=== PATIENT | female | born 1990 | race Caucasian/White ===

== ENCOUNTER 2017-04-21 07:40 | Emergency (ER) | payer MEDICAID, OTHER ==
[~2017-04-21] VITALS: Ht 172.7 cm; Wt 75.2 kg
[2017-04-21 08:25] LABS: ASPARTATE AMINO TRANSFERASE 14 U/L (15-37); BLOOD UREA NITROGEN 9 mg/dL (7-18)
[2017-04-21] MEDS ORDERED: SODIUM CHLORIDE 0.9% 1,000ML IVBOLUS ONE (08:30)
[2017-04-21 09:31] VITALS: BP 118/58
[2017-04-21 09:31] LABS: PATH.CAST-FLAG NOT PRESENT; SPERM-FLAG NOT PRESENT; SRC-FLAG NOT PRESENT; XTAL-FLAG NOT PRESENT; YLC-FLAG NOT PRESENT
== END 2017-04-21 10:09 | disposition home or self-care (01) ==
LOC: ED 08:04
DX: O20.0 Threatened abortion (principal); Z3A.14 14 weeks gestation of pregnancy; F15.10 Other stimulant abuse, uncomplicated; F11.10 Opioid abuse, uncomplicated; Z87.891 Personal history of nicotine dependence
CPT/HCPCS: 36415; 76801; 80053; 81001; 84702; 85025; 86901; 87086; 99285

== ENCOUNTER 2017-04-23 16:18 | Emergency (ER) | payer MEDICAID ==
[~2017-04-23] VITALS: Ht 172.7 cm; Wt 72.8 kg
[2017-04-23 16:22] VITALS: BP 143/80
== END 2017-04-23 17:52 | disposition home or self-care (01) ==
LOC: ED 17:41
DX: O20.0 Threatened abortion (principal); Z3A.01 Less than 8 weeks gestation of pregnancy
CPT/HCPCS: 36415; 84702; 99283

== ENCOUNTER 2017-05-27 17:49 | Emergency (ER) | payer MEDICAID ==
[~2017-05-27] VITALS: Ht 172.7 cm; Wt 74.6 kg
[2017-05-27] MEDS ORDERED: PRENATAL (18:11)
[2017-05-27] MEDS ORDERED: ONDANSETRON ODT 4 MG PO ONE (18:30)
[2017-05-27 18:44] LABS: BLOOD UREA NITROGEN 7 mg/dL (7-18)
[2017-05-27] MEDS ORDERED: ONDANSETRON ODT 4 MG ONE (18:50)
[2017-05-27 19:01] VITALS: BP 115/68
== END 2017-05-27 19:46 | disposition home or self-care (01) ==
LOC: ED 18:34
DX: O20.0 Threatened abortion (principal); Z3A.08 8 weeks gestation of pregnancy; D25.9 Leiomyoma of uterus, unspecified; Z87.891 Personal history of nicotine dependence
CPT/HCPCS: 36415; 76801; 80048; 81001; 82040; 84702; 85025; 87086; 99285; Q0162

== ENCOUNTER 2017-06-06 10:44 | Observation (INO) | payer MEDICAID ==
[~2017-06-06] VITALS: Ht 172.7 cm; Wt 73.0 kg
[~2017-06-06 10:44] MED LIST: PRENATAL
[2017-06-06] MEDS ORDERED: MIDAZOLAM 1 MG/ML, 2ML ONE (11:16)
[2017-06-06] MEDS ORDERED: FENTANYL PF 250 MCG/5ML ONE (11:16)
[2017-06-06] MEDS ORDERED: DOXYCYCLINE 100 MG in DEXTROSE 5% 250 ML IV ONE (11:30)
[2017-06-06] MEDS ORDERED: PLEASE ENTER HEIGHT AND WEIGHT MC SCH (11:30)
[2017-06-06] MEDS ORDERED: ZOLP10TA5 PO (11:34)
[2017-06-06] MEDS ORDERED: [UNRECOGNIZED DRUG - OTHER] (11:34)
[2017-06-06] MEDS ORDERED: NORT25CA PO (11:34)
[2017-06-06] MEDS ORDERED: CLON-365 PO (11:34)
[2017-06-06 11:40] VITALS: BP 118/73
[2017-06-06] MEDS ORDERED: SILVER NITRATE STICK TP ONE ×2 (11:57→12:08)
[2017-06-06] MEDS ORDERED: MISOPROSTOL 200 MCG TABLET ONE ×2 (11:57→12:08)
[2017-06-06] MEDS ORDERED: OXYTOCIN 10 UNITS/ML, 1ML ONE ×2 (11:57→12:08)
[2017-06-06] MEDS ORDERED: EPINEPHRINE 1 MG/ML, 1ML ONE ×2 (11:58→12:08)
[2017-06-06] MEDS ORDERED: METHYLERGONOVINE 0.2 MG/ML IM ONE ×2 (11:58→12:10)
[2017-06-06] MEDS ORDERED: LIDOCAINE/PF 1%, 30ML ONE ×2 (11:58→12:08)
[2017-06-06] MEDS ORDERED: LACTATED RINGERS 1,000 ML IV SCH ×2 (12:01→12:55)
[2017-06-06] MEDS ORDERED: ONDANSETRON 2MG/ML, 2ML ONE (12:30)
[2017-06-06] MEDS ORDERED: PROPOFOL 10 MG/ML, 20ML ONE (12:30)
[2017-06-06] MEDS ORDERED: KETOROLAC 30 MG/1 ML ONE (12:30)
[2017-06-06] MEDS ORDERED: ROCURONIUM 10 MG/ML ONE (12:30)
[2017-06-06] MEDS ORDERED: SUCCINYLCHOLINE 20 MG/ML, 10ML ONE (12:30)
[2017-06-06] MEDS ORDERED: GLYCOPYRROLATE 0.2MG/1ML ONE (12:30)
[2017-06-06] MEDS ORDERED: DEXAMETHASONE 4 MG/ML, 1ML ONE (12:30)
[2017-06-06] MEDS ORDERED: NEOSTIGMINE 1 MG/ML, 10ML ONE (12:30)
[2017-06-06] MEDS ORDERED: PROMETHAZINE 25 MG/ML, 1ML IV PRN (13:00)
[2017-06-06] MEDS ORDERED: ONDANSETRON 2MG/ML, 2ML IVPush PRN ×2 (13:00)
[2017-06-06] MEDS ORDERED: hydrALAzine 20 MG/ML, 1ML IV PRN (13:00)
[2017-06-06] MEDS ORDERED: LABETALOL 5MG/ML, 20ML IV PRN (13:00)
[2017-06-06] MEDS ORDERED: morphine SULFATE 10 MG/ML, 1ML IVPush PRN (13:00)
[2017-06-06] MEDS ORDERED: HYDROmorphone 1 MG/ML, 1ML IV PRN (13:00)
[2017-06-06] MEDS ORDERED: MEPERIDINE/PF 25MG/0.5ML IVPush PRN (13:00)
[2017-06-06] MEDS ORDERED: FENTANYL PF 100 MCG/2ML IV PRN (13:00)
[2017-06-06] MEDS ORDERED: PROMETHAZINE 25 MG/ML, 1ML IVPush ONE (13:00)
[2017-06-06] MEDS ORDERED: PROMETHAZINE 25 MG SUPP PR ONE (13:00)
[2017-06-06] MEDS ORDERED: MIDAZOLAM 1 MG/ML, 2ML IV PRN (13:00)
[2017-06-06] MEDS ORDERED: EPHEDRINE 50 MG/ML, 1ML IVPush PRN (13:00)
[2017-06-06] MEDS ORDERED: PROMETHAZINE 12.5 MG SUPP PR ONE (13:00)
[2017-06-06] MEDS ORDERED: METOPROLOL 1 MG/ML, 5ML IV PRN (13:00)
[2017-06-06] MEDS ORDERED: ALBUTEROL SULFATE 2.5 MG/3 ML NPPB PRN (13:00)
[2017-06-06] MEDS ORDERED: HYDROcodone/APAP 7.5-325MG/15ML UDC PO PRN (13:00)
[2017-06-06] MEDS ORDERED: ACETAMINOPHEN 325 MG TABLET PO PRN (13:00)
[2017-06-06] MEDS ORDERED: OXYcodone 5 MG/5 ML ORAL.SOL UDC PO PRN ×2 (13:00)
[2017-06-06] MEDS ORDERED: OXYcodone 5 MG/5 ML ORAL.SOL UDC ONE (13:29)
== END 2017-06-06 17:00 | disposition home or self-care (01) ==
LOC: OUT 10:44 → ORIP 12:55
PROVIDERS: ADMIT Student in an Organized Health Care Education/Training Program; ATTEND Student in an Organized Health Care Education/Training Program
DX: O20.0 Threatened abortion (principal); O99.513 Diseases of the respiratory system complicating pregnancy, third trimester; J45.909 Unspecified asthma, uncomplicated; O99.341 Other mental disorders complicating pregnancy, first trimester; F41.9 Anxiety disorder, unspecified; F32.9 Major depressive disorder, single episode, unspecified; Z3A.11 11 weeks gestation of pregnancy
CPT/HCPCS: 36415; 58120; 86850; 86900; 88305; G0378; J0171; J0330; J1100; J1885; J2210; J2250; J2405; J2704; J2710; J3010; J3490; J7060; J7120; J2590

== ENCOUNTER 2018-08-27 14:16 | Inpatient (IN) | payer BC, OTHER ==
[~2018-08-27] VITALS: Ht 172.7 cm; Wt 78.0 kg
[~2018-08-27 14:16] MED LIST changes: +CLON1TAB11 PO; +NORT25CA PO; +ZOLP10TA5 PO; +[UNRECOGNIZED DRUG - OTHER]
[2018-08-27] MEDS ORDERED: ACETAMINOPHEN 500 MG TABLET PO ONE (15:00)
[2018-08-27] MEDS ORDERED: SODIUM CHLORIDE FLUSH 10ML SYR IVF ONE (15:00)
[2018-08-27] MEDS ORDERED: SODIUM CHLORIDE 0.9% 1,000ML IVBOLUS ONE (15:00)
[2018-08-27 15:29] LABS: BASOPHILS # (AUTO) 0.01 x10^3/uL (0-0.1); BASOPHILS % (AUTO) 0 % (0-1); EOSINOPHILS % (AUTO) 0 % (1-7); LYMPHOCYTES # (AUTO) 0.86 x10^3/uL (1-3.4); LYMPHOCYTES % (AUTO) 6 % (22-44); MD NO; MEAN CORPUSCULAR HEMOGLOBIN 28.7 pg (27.0-34.8); MEAN CORPUSCULAR HGB CONC 33.4 g/dL (32.4-35.8); MEAN CORPUSCULAR VOLUME 85.9 fL (80-100); MEAN PLATELET VOLUME 7.9 fL (7.4-10.4); MONOCYTES # (AUTO) 0.72 x10^3/uL (0.2-0.8); MONOCYTES % (AUTO) 5 % (2-9); NEUTROPHILS # (AUTO) 12.26 x10^3/uL (1.8-6.8); NEUTROPHILS % (AUTO) 89 % (42-75); PLATELET COUNT 272 x10^3/uL (130-400); RED BLOOD COUNT 4.58 x10^6/uL (3.82-5.3); RED CELL DISTRIBUTION WIDTH 14.9 % (9.6-15.2)
[2018-08-27 15:39] LABS: ALBUMIN 2.8 g/dL (3.4-5.0); ANION GAP 9 mmol/L (5-15); CALCIUM 8.2 mg/dL (8.5-10.1); CHLORIDE 98 mmol/L (98-107); CREATININE 0.94 mg/dL (0.55-1.02)
[2018-08-27 15:46] LABS: CULTURE INDICATED? YES; MICROSCOPIC INDICATED
[2018-08-27] MEDS ORDERED: MORPHINE SULFATE 4 MG/ML, 1ML ONE (15:54)
[2018-08-27] MEDS ORDERED: ACETAMINOPHEN 500 MG TABLET ONE (15:55)
[2018-08-27] MEDS ORDERED: MORPHINE SULFATE 4 MG/ML, 1ML IVPush ONE (16:00)
[2018-08-27] MEDS ORDERED: CEFTRIAXONE PMX 2GM/50ML 50 ML IV ONE (16:00)
[2018-08-27] MEDS ORDERED: CEFTRIAXONE PMX 2GM/50ML 50 ML ONE (16:08)
[2018-08-27] MEDS ORDERED: KETOROLAC 30 MG/1 ML ONE (17:08)
[2018-08-27] MEDS ORDERED: SODIUM CHLORIDE 0.9% 1,000 ML IV SCH (17:18)
[2018-08-27] MEDS ORDERED: ONDANSETRON 2MG/ML, 2ML IVPush PRN (17:30)
[2018-08-27] MEDS ORDERED: ONDANSETRON ODT 4 MG PO PRN (17:30)
[2018-08-27] MEDS ORDERED: POLYETHYLENE GLYCOL 17 GM PACKET PO PRN (17:30)
[2018-08-27] MEDS ORDERED: LABETALOL 5MG/ML, 20ML IVPush PRN (17:30)
[2018-08-27] MEDS ORDERED: morphine SULFATE 10 MG/ML, 1ML IVPush PRN (17:30)
[2018-08-27] MEDS ORDERED: NORTRIPTYLINE HCL 25 MG PO SCH (18:00)
[2018-08-27] MEDS ORDERED: KETOROLAC 30 MG/1 ML IVPush ONE (18:00)
[2018-08-27] MEDS ORDERED: NORTRIPTYLINE MC SCH (18:30)
[2018-08-27 19:46] VITALS: BP 100/62
[2018-08-27] MEDS: SODIUM CHLORIDE 0.45% 1,000 ML IV SCH (20:31)
[2018-08-27] MEDS: FAMOTIDINE 20 MG/2 ML IVPush SCH (21:07)
[2018-08-27] MEDS: HEPARIN 5,000 UNITS/ML, 1ML SQ SCH (21:07)
[2018-08-27 21:19] VITALS: BP 100/62
[2018-08-28] MEDS: ACYCLOVIR 200 MG CAPSULE PO SCH ×3 (01:53→10:00)
[2018-08-28] MEDS ORDERED: KETOROLAC 30 MG/1 ML IVPush ONE (02:30)
[2018-08-28 02:47] VITALS: BP 104/64
[2018-08-28] MEDS: ACETAMINOPHEN 325 MG TABLET PO PRN ×2 (02:56→19:41)
[2018-08-28] MEDS: SODIUM CHLORIDE 0.45% 1,000 ML IV SCH ×3 (03:06→19:41)
[2018-08-28 05:15] LABS: BASOPHILS # (AUTO) 0.02 x10^3/uL (0-0.1); BASOPHILS % (AUTO) 0 % (0-1); EOSINOPHILS # (AUTO) 0.07 x10^3/uL (0-0.4); EOSINOPHILS % (AUTO) 1 % (1-7); LYMPHOCYTES # (AUTO) 1.07 x10^3/uL (1-3.4); LYMPHOCYTES % (AUTO) 14 % (22-44); MD NO; MEAN CORPUSCULAR HEMOGLOBIN 28.9 pg (27.0-34.8); MEAN CORPUSCULAR HGB CONC 33.2 g/dL (32.4-35.8); MEAN CORPUSCULAR VOLUME 86.8 fL (80-100); MEAN PLATELET VOLUME 8.3 fL (7.4-10.4); MONOCYTES % (AUTO) 11 % (2-9); NEUTROPHILS # (AUTO) 5.83 x10^3/uL (1.8-6.8); NEUTROPHILS % (AUTO) 74 % (42-75); PLATELET COUNT 224 x10^3/uL (130-400); RED BLOOD COUNT 3.87 x10^6/uL (3.82-5.3); RED CELL DISTRIBUTION WIDTH 14.9 % (9.6-15.2)
[2018-08-28 05:24] LABS: ALBUMIN 2.4 g/dL (3.4-5.0); ANION GAP 7 mmol/L (5-15); CALCIUM 7.7 mg/dL (8.5-10.1); CHLORIDE 105 mmol/L (98-107)
[2018-08-28 05:36] LABS: ALANINE AMINOTRANSFERASE 30 U/L (12-78); ALKALINE PHOSPHATASE 49 U/L (45-117); BILIRUBIN,TOTAL 0.5 mg/dL (0.2-1.0); CREATININE 0.84 mg/dL (0.55-1.02); THYROID STIMULATING HORMONE 0.986 mIU/L (0.358-3.740); TOTAL PROTEIN 6.5 g/dL (6.4-8.2)
[2018-08-28] MEDS: HEPARIN 5,000 UNITS/ML, 1ML SQ SCH ×2 (06:22→15:51)
[2018-08-28] MEDS ORDERED: POTASSIUM CHLORIDE 20 MEQ TAB.ER.PRT PO ONE ×2 (06:30)
[2018-08-28 07:11] VITALS: BP 93/58
[2018-08-28] MEDS: FAMOTIDINE 20 MG/2 ML IVPush SCH ×2 (08:25→21:00)
[2018-08-28] MEDS: SENNA/DOCUSATE TABLET PO SCH (08:25)
[2018-08-28] MEDS ORDERED: OMNIPAQUE 350 MG/ML, 100ML BOTTLE ONE (09:23)
[2018-08-28] MEDS: KETOROLAC 30 MG/1 ML IVPush PRN ×2 (11:26→19:41)
[2018-08-28 14:14] VITALS: BP 113/70
[2018-08-28] MEDS: ACYCLOVIR 400 MG TABLET PO SCH ×2 (15:52→22:16)
[2018-08-28] MEDS ORDERED: CEFTRIAXONE 1,000 MG in SODIUM CHLORIDE 0.9% 50 ML IV SCH (16:00)
[2018-08-28 18:59] VITALS: BP 105/71
[2018-08-28] MEDS: FAMOTIDINE 20 MG TABLET PO SCH (22:16)
[2018-08-28] MEDS ORDERED: MORPHINE SULFATE 4 MG/ML, 1ML ONE (23:03)
[2018-08-29 02:14] VITALS: BP 95/60
[2018-08-29] MEDS: HEPARIN 5,000 UNITS/ML, 1ML SQ SCH ×3 (03:08→19:12)
[2018-08-29] MEDS: KETOROLAC 30 MG/1 ML IVPush PRN ×3 (03:08→19:12)
[2018-08-29] MEDS: SODIUM CHLORIDE 0.45% 1,000 ML IV SCH ×4 (03:09→22:27)
[2018-08-29] MEDS: ACYCLOVIR 400 MG TABLET PO SCH ×6 (06:00→21:08)
[2018-08-29 07:00] VITALS: BP 91/61
[2018-08-29] MEDS: SENNA/DOCUSATE TABLET PO SCH (08:26)
[2018-08-29] MEDS: HYDROcodone/APAP 5/325 TABLET PO PRN ×3 (08:39→22:26)
[2018-08-29] MEDS: GABAPENTIN 100 MG CAPSULE PO SCH ×2 (08:39→21:08)
[2018-08-29] MEDS: FAMOTIDINE 20 MG TABLET PO SCH ×2 (08:39→21:08)
[2018-08-29] MEDS ORDERED: CEFTRIAXONE PMX 1GM/50ML 50 ML IV SCH (09:30)
[2018-08-29] MEDS: CEFTRIAXONE PMX 2GM/50ML 50 ML IV SCH (10:53)
[2018-08-29 12:40] VITALS: BP 97/62
[2018-08-29] MEDS ORDERED: POTASSIUM CHLORIDE 20 MEQ TAB.ER.PRT PO ONE ×2 (15:30→19:30)
[2018-08-29 19:27] VITALS: BP 96/60
[2018-08-29] MEDS ORDERED: NICOTINE 21 MG/24 HR PATCH.TD24 TD ONE (22:00)
[2018-08-30] MEDS: KETOROLAC 30 MG/1 ML IVPush PRN ×2 (02:04→14:10)
[2018-08-30 02:07] VITALS: BP 104/67
[2018-08-30] MEDS: HEPARIN 5,000 UNITS/ML, 1ML SQ SCH ×3 (02:10→18:10)
[2018-08-30] MEDS: SODIUM CHLORIDE 0.45% 1,000 ML IV SCH ×3 (05:18→20:40)
[2018-08-30] MEDS: ACYCLOVIR 400 MG TABLET PO SCH ×5 (05:19→20:39)
[2018-08-30] MEDS: HYDROcodone/APAP 5/325 TABLET PO PRN ×3 (05:22→20:39)
[2018-08-30 05:39] LABS: CHLORIDE 111 mmol/L (98-107)
[2018-08-30 05:43] LABS: BASOPHILS # (AUTO) 0.01 x10^3/uL (0-0.1); BASOPHILS % (AUTO) 0 % (0-1); EOSINOPHILS # (AUTO) 0.33 x10^3/uL (0-0.4); EOSINOPHILS % (AUTO) 6 % (1-7); LYMPHOCYTES # (AUTO) 1.53 x10^3/uL (1-3.4); LYMPHOCYTES % (AUTO) 29 % (22-44); MD NO; MEAN CORPUSCULAR HEMOGLOBIN 28.2 pg (27.0-34.8); MEAN CORPUSCULAR VOLUME 85.5 fL (80-100); MEAN PLATELET VOLUME 8.4 fL (7.4-10.4); MONOCYTES # (AUTO) 0.48 x10^3/uL (0.2-0.8); MONOCYTES % (AUTO) 9 % (2-9); NEUTROPHILS # (AUTO) 2.93 x10^3/uL (1.8-6.8); NEUTROPHILS % (AUTO) 56 % (42-75); PLATELET COUNT 266 x10^3/uL (130-400); RED BLOOD COUNT 4.01 x10^6/uL (3.82-5.3); RED CELL DISTRIBUTION WIDTH 15.4 % (9.6-15.2)
[2018-08-30 05:50] LABS: ALANINE AMINOTRANSFERASE 30 U/L (12-78); ALKALINE PHOSPHATASE 44 U/L (45-117); ANION GAP 7 mmol/L (5-15); BILIRUBIN,TOTAL 0.2 mg/dL (0.2-1.0); CALCIUM 7.7 mg/dL (8.5-10.1); CREATININE 0.67 mg/dL (0.55-1.02); TOTAL PROTEIN 5.6 g/dL (6.4-8.2)
[2018-08-30 08:36] VITALS: BP 129/84
[2018-08-30] MEDS: SENNA/DOCUSATE TABLET PO SCH (09:00)
[2018-08-30] MEDS: FAMOTIDINE 20 MG TABLET PO SCH ×2 (10:17→20:39)
[2018-08-30] MEDS: GABAPENTIN 100 MG CAPSULE PO SCH ×2 (10:17→20:39)
[2018-08-30] MEDS: CEFTRIAXONE PMX 2GM/50ML 50 ML IV SCH (11:18)
[2018-08-30] MEDS: LORazepam 0.5MG TABLET PO PRN ×2 (12:51→22:10)
[2018-08-30 14:11] VITALS: BP 124/75
[2018-08-30 22:10] VITALS: BP 118/75
[2018-08-31 02:07] VITALS: BP 105/67
[2018-08-31] MEDS: HEPARIN 5,000 UNITS/ML, 1ML SQ SCH ×2 (03:00→10:14)
[2018-08-31] MEDS: SODIUM CHLORIDE 0.45% 1,000 ML IV SCH ×2 (03:20→09:13)
[2018-08-31 05:06] LABS: ALBUMIN 2.4 g/dL (3.4-5.0); ANION GAP 7 mmol/L (5-15); CALCIUM 8.1 mg/dL (8.5-10.1); CHLORIDE 111 mmol/L (98-107); CREATININE 0.62 mg/dL (0.55-1.02)
[2018-08-31 05:09] LABS: BASOPHILS # (AUTO) 0.04 x10^3/uL (0-0.1); BASOPHILS % (AUTO) 1 % (0-1); EOSINOPHILS # (AUTO) 0.24 x10^3/uL (0-0.4); EOSINOPHILS % (AUTO) 5 % (1-7); LYMPHOCYTES # (AUTO) 1.61 x10^3/uL (1-3.4); LYMPHOCYTES % (AUTO) 32 % (22-44); MD NO; MEAN CORPUSCULAR HEMOGLOBIN 27.9 pg (27.0-34.8); MEAN CORPUSCULAR HGB CONC 32.4 g/dL (32.4-35.8); MONOCYTES % (AUTO) 8 % (2-9); NEUTROPHILS % (AUTO) 54 % (42-75); PLATELET COUNT 326 x10^3/uL (130-400); RED BLOOD COUNT 3.78 x10^6/uL (3.82-5.3); RED CELL DISTRIBUTION WIDTH 15.6 % (9.6-15.2)
[2018-08-31] MEDS: ACYCLOVIR 400 MG TABLET PO SCH ×2 (05:50→09:12)
[2018-08-31 07:44] VITALS: BP 100/66
[2018-08-31] MEDS ORDERED: CEFTRIAXONE PMX 2GM/50ML 50 ML IV SCH (08:00)
[2018-08-31] MEDS ORDERED: OMNIPAQUE 350 MG/ML, 100ML BOTTLE ONE (08:50)
[2018-08-31] MEDS: SENNA/DOCUSATE TABLET PO SCH ×2 (09:00→09:12)
[2018-08-31] MEDS: GABAPENTIN 100 MG CAPSULE PO SCH (09:12)
[2018-08-31] MEDS: KETOROLAC 30 MG/1 ML IVPush PRN (09:12)
[2018-08-31] MEDS: FAMOTIDINE 20 MG TABLET PO SCH (09:12)
[2018-08-31] MEDS ORDERED: CEFD300C37 PO (10:28)
== END 2018-08-31 12:20 | disposition home or self-care (01) | DRG 871 ==
LOC: ED 17:24 → EDIP 17:25 → 3NE 18:09 → DCLOUNGE 08-31 12:10
PROVIDERS: ADMIT Hospitalist; ATTEND Hospitalist
DX: A41.9 Sepsis, unspecified organism (principal); G93.5 Compression of brain; E43 Unspecified severe protein-calorie malnutrition; N10 Acute pyelonephritis; E87.1 Hypo-osmolality and hyponatremia; R73.9 Hyperglycemia, unspecified; D64.9 Anemia, unspecified; K76.0 Fatty (change of) liver, not elsewhere classified; R59.1 Generalized enlarged lymph nodes; R65.20 Severe sepsis without septic shock; Z82.49 Family history of ischemic heart disease and other diseases of the circulatory system; Z87.891 Personal history of nicotine dependence; Z83.3 Family history of diabetes mellitus; Z68.26 Body mass index [BMI] 26.0-26.9, adult
CPT/HCPCS: 36415; 99285; S0028; 70491; 74177; 76770; 80048; 80053; 81001; 81025; 82040; 83605; 83735; 84100; 84439; 84443; 84703; 85025; 87040; 87077; 87086; 87186; 90656; 96365; 96366; 96375; G0378; J0696; J1644; J1885; Q0162; Q9967; J2270; J7030